=== PATIENT | male | born 1945 | race Caucasian/White ===

== ENCOUNTER 2020-06-21 07:22 | Inpatient (IN) | payer MEDICARE, MEDICAID ==
[~2020-06-21] VITALS: Ht 177.8 cm; Wt 95.2 kg
[~2020-06-21 07:22] MED LIST: ALBU8.5H5 INH; AMIT25TA PO; ARGI500C7 PO; ASPI325T17 PO; BACITRACIN 50,000 UNIT ONE; BACITRACIN OINT 500U/GM, 15 GM ONE; BUPIVACAINE/PF 0.5% ONE; CALC600T60 PO; CETI10TA76 PO; CHLO12TA PO; CHOL10002 PO; CHRO200T2 PO; CYAN100072 PO; DIAZ10TA PO; DICL100G19 TP; DIPH25CA61 PO; ENAL5TAB10 PO; EPINEPHRINE 1 MG/ML, 1ML ONE; FLAX10002 PO; LISI-170 PO; MAGNESIUM PO; MELO15TA24 PO; MELO7.5T31 PO; MONT10TA6 PO; OXYC-302 PO; OXYC-307 PO; OXYC5CAP2 PO; PARO10TA56 PO; PROP40TA PO; SAW450CA7 PO; THROMBIN 20,000 UNIT VIAL TP ONE; TRAM50TA2 PO; TRIA10.8 NAS; VIT1CAPS44 PO; VITA15LO2 PO; VITA1TAB3 PO; VITA400C14 PO
[2020-06-21] MEDS ORDERED: CARB1TAB46 PO (07:58)
[2020-06-21] MEDS ORDERED: AMAN100C7 PO (07:58)
[2020-06-21] MEDS ORDERED: CHLORHEXIDINE 15 ML UDC ONE (08:05)
[2020-06-21 08:15] VITALS: BP 184/82
[2020-06-21] MEDS ORDERED: CHLORHEXIDINE 15 ML UDC MM ONE (08:30)
[2020-06-21] MEDS ORDERED: LACTATED RINGERS 1,000 ML IV SCH (08:30)
[2020-06-21] MEDS ORDERED: MIDAZOLAM 1 MG/ML, 2ML ONE (08:53)
[2020-06-21] MEDS ORDERED: FENTANYL PF 250 MCG/5ML ONE (08:54)
[2020-06-21] MEDS ORDERED: PROPOFOL 100 ML ONE (08:55)
[2020-06-21] MEDS ORDERED: CEFAZOLIN 1,000 MG ONE (08:57)
[2020-06-21] MEDS ORDERED: GLYCOPYRROLATE 0.2MG/1ML, 5ML ONE (08:57)
[2020-06-21] MEDS ORDERED: PROPOFOL 10 MG/ML, 20ML ONE (08:57)
[2020-06-21] MEDS ORDERED: NEOSTIGMINE 1 MG/ML, 10ML ONE (08:57)
[2020-06-21] MEDS ORDERED: ROCURONIUM 10MG/ML,5ML ONE (08:57)
[2020-06-21] MEDS ORDERED: MEPERIDINE/PF 25MG/0.5ML IVPush PRN (10:00)
[2020-06-21] MEDS ORDERED: hydrALAzine 20 MG/ML, 1ML IV PRN (10:00)
[2020-06-21] MEDS ORDERED: LABETALOL 5MG/ML, 20ML IV PRN (10:00)
[2020-06-21] MEDS ORDERED: PROMETHAZINE 25 MG/ML, 1ML IVPush PRN (10:00)
[2020-06-21] MEDS ORDERED: FENTANYL PF 100 MCG/2ML IV PRN (10:00)
[2020-06-21] MEDS ORDERED: HYDROmorphone 1 MG/ML, 1ML INJ IVPush PRN (10:00)
[2020-06-21] MEDS ORDERED: OXYcodone 5 MG/5 ML ORAL.SOL UDC PO PRN (10:00)
[2020-06-21] MEDS ORDERED: ACETAMINOPHEN 325 MG TABLET PO PRN ×3 (10:00→16:30)
[2020-06-21] MEDS ORDERED: PHENYLEPHRINE 10 MG/ML ONE (10:13)
[2020-06-21] MEDS ORDERED: METHOCARBAMOL 1,000 MG in DEXTROSE 5% 100 ML IV ONE ×3 (12:30→15:00)
[2020-06-21] MEDS ORDERED: FENTANYL PF 100 MCG/2ML ONE (12:33)
[2020-06-21] MEDS ORDERED: OXYcodone 5 MG/5 ML ORAL.SOL UDC ONE (12:33)
[2020-06-21] MEDS ORDERED: ENALAPRILAT 1.25 MG/ML, 2ML ONE (12:51)
[2020-06-21] MEDS ORDERED: ENALAPRILAT 1.25 MG/ML, 2ML IV ONE (13:00)
[2020-06-21 13:20] VITALS: BP 170/80
[2020-06-21] MEDS ORDERED: DIPHENHYDRAMINE 50 MG/ML, 1ML IM PRN ×2 (14:00→15:00)
[2020-06-21] MEDS ORDERED: HYDROcodone/APAP 5/325 TABLET PO PRN ×2 (14:00→15:00)
[2020-06-21] MEDS ORDERED: MAGNESIUM HYDROXIDE 8%, 30ML UDC PO PRN (14:00)
[2020-06-21] MEDS ORDERED: ONDANSETRON 2MG/ML, 2ML IV PRN (14:00)
[2020-06-21] MEDS ORDERED: DIPHENHYDRAMINE 50 MG/ML, 1ML IVPush PRN ×2 (14:00→15:00)
[2020-06-21] MEDS ORDERED: HYDROcodone/APAP 10/325 MG TABLET PO PRN (14:00)
[2020-06-21] MEDS ORDERED: BISACODYL 10 MG SUPP PR PRN ×2 (14:00→15:00)
[2020-06-21] MEDS ORDERED: PROMETHAZINE 25 MG/ML, 1ML IM PRN ×2 (14:00→15:00)
[2020-06-21 15:00] VITALS: BP 135/71
[2020-06-21] MEDS ORDERED: DIPHENHYDRAMINE 50 MG CAPSULE PO PRN (15:00)
[2020-06-21] MEDS ORDERED: ACETAMINOPHEN 650 MG SUPP PR PRN ×2 (15:00→16:30)
[2020-06-21] MEDS ORDERED: morphine SULFATE 10 MG/ML, 1ML IVPush PRN (15:00)
[2020-06-21] MEDS ORDERED: NS + 20MEQ KCL 1,000 ML IV SCH (15:00)
[2020-06-21] MEDS ORDERED: SENNA/DOCUSATE TABLET PO PRN (15:00)
[2020-06-21] MEDS ORDERED: DIPHENHYDRAMINE 25 MG CAPSULE PO PRN (15:00)
[2020-06-21] MEDS ORDERED: PHARMACY MAY ADJ FOR RENAL FX MC PRN (15:00)
[2020-06-21] MEDS ORDERED: METHOCARBAMOL 750 MG in DEXTROSE 5% 100 ML IV SCH (15:00)
[2020-06-21] MEDS ORDERED: ONDANSETRON 2MG/ML, 2ML IVPush PRN (15:00)
[2020-06-21] MEDS ORDERED: CEFAZOLIN PMX 2GM/50ML 50 ML IVPB SCH (15:00)
[2020-06-21] MEDS: CARBIDOPA/LEVODOPA 10 MG/100 MG TABLET PO SCH ×2 (16:35→21:00)
[2020-06-21] MEDS: OXYcodone IR 5MG TABLET PO PRN ×2 (16:39→20:55)
[2020-06-21] MEDS: NS + 20MEQ KCL 1,000 ML IV SCH (16:51)
[2020-06-21] MEDS ORDERED: CEFAZOLIN 2,000 MG in SODIUM CHLORIDE 0.9% 50 ML IV SCH (17:00)
[2020-06-21] MEDS: PROPRANOLOL 40 MG TABLET PO SCH (17:17)
[2020-06-21] MEDS: CEFAZOLIN PMX 2GM/50ML 50 ML IVPB SCH (17:50)
[2020-06-21] MEDS: morphine SULFATE 10 MG/ML, 1ML IV PRN ×2 (18:00→22:45)
[2020-06-21] MEDS: METHOCARBAMOL 750 MG in DEXTROSE 5% 100 ML IV SCH (20:58)
[2020-06-21 21:59] VITALS: BP 124/68
[2020-06-21] MEDS: SODIUM CHLORIDE FLUSH 10ML SYR IVF SCH (22:42)
[2020-06-21] MEDS: AMANTADINE 100 MG CAPSULE PO SCH (22:42)
[2020-06-21] MEDS ORDERED: METHOCARBAMOL 750 MG in DEXTROSE 5% 100 ML IV PRN (23:00)
[2020-06-22] VITALS (7 sets, daily range): BP systolic 115–155; BP diastolic 53–74
[2020-06-22] MEDS: CARBIDOPA/LEVODOPA 10 MG/100 MG TABLET PO SCH ×4 (01:19→20:03)
[2020-06-22] MEDS: OXYcodone IR 5MG TABLET PO PRN ×3 (01:23→08:40)
[2020-06-22] MEDS: CEFAZOLIN PMX 2GM/50ML 50 ML IVPB SCH ×3 (02:00→10:33)
[2020-06-22] MEDS: NS + 20MEQ KCL 1,000 ML IV SCH ×2 (02:44→15:00)
[2020-06-22] MEDS: morphine SULFATE 10 MG/ML, 1ML IV PRN (02:46)
[2020-06-22] MEDS: METHOCARBAMOL 750 MG in DEXTROSE 5% 100 ML IV SCH ×3 (05:31→20:03)
[2020-06-22] MEDS: PROPRANOLOL 40 MG TABLET PO SCH ×2 (05:47→17:53)
[2020-06-22] MEDS: SENNA/DOCUSATE TABLET PO SCH (08:39)
[2020-06-22] MEDS: AMANTADINE 100 MG CAPSULE PO SCH ×2 (08:39→20:03)
[2020-06-22] MEDS: SODIUM CHLORIDE FLUSH 10ML SYR IVF SCH ×2 (08:40→20:04)
[2020-06-22] MEDS: PAROXETINE 10 MG TABLET PO SCH (08:40)
[2020-06-22] MEDS ORDERED: DEXAMETHASONE 4 MG/ML, 1ML IV ONE (10:00)
[2020-06-22] MEDS: MAGNESIUM HYDROXIDE 8%, 30ML UDC PO SCH (10:33)
[2020-06-22] MEDS: KETOROLAC 30 MG/1 ML IV SCH ×2 (10:33→17:53)
[2020-06-23] MEDS: NS + 20MEQ KCL 1,000 ML IV SCH ×2 (00:16→11:00)
[2020-06-23 01:24] VITALS: BP 163/72
[2020-06-23] MEDS: KETOROLAC 30 MG/1 ML IV SCH (01:26)
[2020-06-23] MEDS: METHOCARBAMOL 750 MG in DEXTROSE 5% 100 ML IV SCH ×2 (04:44→11:10)
[2020-06-23] MEDS: PROPRANOLOL 40 MG TABLET PO SCH (06:06)
[2020-06-23] MEDS: MAGNESIUM HYDROXIDE 8%, 30ML UDC PO SCH (08:03)
[2020-06-23] MEDS: AMANTADINE 100 MG CAPSULE PO SCH (08:03)
[2020-06-23] MEDS: CARBIDOPA/LEVODOPA 10 MG/100 MG TABLET PO SCH (08:03)
[2020-06-23] MEDS: SENNA/DOCUSATE TABLET PO SCH (08:03)
[2020-06-23] MEDS: SODIUM CHLORIDE FLUSH 10ML SYR IVF SCH (08:03)
[2020-06-23] MEDS: PAROXETINE 10 MG TABLET PO SCH (08:03)
[2020-06-23 08:09] VITALS: BP 164/76
[2020-06-23] MEDS ORDERED: ALUMINUM/MAG/SIMETHICONE 30 ML UDC PO PRN (09:00)
[2020-06-23] MEDS ORDERED: FAMOTIDINE 20 MG TABLET PO SCH (09:00)
[2020-06-23] MEDS ORDERED: FAMOTIDINE 40 MG TABLET ONE (09:38)
[2020-06-23] MEDS ORDERED: BISACODYL 10 MG SUPP PR ONE (11:00)
[2020-06-23] MEDS ORDERED: DEXAMETHASONE 4 MG TABLET PO ONE (11:00)
[2020-06-23] MEDS ORDERED: METH750T87 PO (11:37)
[2020-06-23 12:56] VITALS: BP 149/88
[2020-06-23] MEDS ORDERED: METHOCARBAMOL 750 MG TABLET PO SCH ×2 (20:00→23:00)
== END 2020-06-23 15:15 | disposition home or self-care (01) | DRG 517 ==
LOC: OUT 07:22 → 4NE 14:40 → OUT 14:53 → 4NE 14:53
PROVIDERS: ADMIT Neurological Surgery; ATTEND Neurological Surgery
PROC: 01NB0ZZ Release Lumbar Nerve, Open Approach (ICD-10-PCS; principal; 2020-06-21 09:30)
DX: M48.062 Spinal stenosis, lumbar region with neurogenic claudication (principal); Z20.828 Contact with and (suspected) exposure to other viral communicable diseases
CPT/HCPCS: 72100; 87635; 95938; 95941; G0378; J0171; J0690; J1100; J1885; J2250; J2704; J2710; J3010; J3480; J2270; J2370; J2800; J7120